=== PATIENT | female | born 1965 | race Caucasian/White ===

== ENCOUNTER 2022-04-10 06:34 | Day surgery (SDC) | payer BC ==
[2022-04-09 07:56] LABS: HCG,QUAL RESULT NEGATIVE (NEGATIVE)
[~2022-04-10] VITALS: Ht 170.2 cm; Wt 99.8 kg
[2022-04-10] MEDS ORDERED: MEPERIDINE 100 MG INJ. 100 MG/ML VIAL ONE (08:07)
[2022-04-10] MEDS: MIDAZOLAM HCL 5 MG/5 ML VIAL ONE ×3 (08:58→09:06)
[2022-04-10 13:25] VITALS: BP_SYST 135
== END 2022-04-10 10:15 | disposition home or self-care (01) ==
LOC: SDS 06:34 → SMU 07:23 → SDS 10:15
PROVIDERS: ATTEND Internal Medicine
DX: Z12.11 Encounter for screening for malignant neoplasm of colon (principal); K63.5 Polyp of colon; K57.30 Diverticulosis of large intestine without perforation or abscess without bleeding; K64.8 Other hemorrhoids; Z79.899 Other long term (current) drug therapy; Z20.822 Contact with and (suspected) exposure to COVID-19
CPT/HCPCS: 84703; 36415; 45385; 88305; 99152; U0003; G0378; J2250; J2175